=== PATIENT | male | born 1965 | race African-American/Black ===

== ENCOUNTER 2022-02-02 11:53 | Emergency (ER) | payer OTHER ==
[2022-02-02] MEDS ORDERED: LACTATED RINGERS SOLUTION 1000 ML INFUS.BAG IV ONE (12:53)
[2022-02-02 13:48] VITALS: BMI 22.1
[2022-02-02 13:48] LABS: BASO % 0.2 % (0-2.0); HEMATOCRIT 44.5 % (35.4-49); LYMPH % 9.5 % (8-40); MCH 28.7 pg (25.7-33.7); MCHC 33.8 g/dl (32.0-35.9); MEAN CELL VOLUME 84.9 fl (80-96); MEAN PLT VOLUME 7.9 fl (7.5-11.1); MONO % 4.8 % (3.8-10.2); NEUT % 85.5 % (42.8-82.8); PLATELET COUNT 339 10^3/uL (134-434); RBC 5.24 M/mm3 (4.00-5.60); RDW 14.7 % (11.9-15.9); WHITE BLOOD COUNT 10.2 K/mm3 (4.0-10.0)
[2022-02-02 14:05] LABS: CALCIUM 9.5 mg/dL (8.5-10.1)
[2022-02-02 14:06] LABS: ALBUMIN 3.6 g/dl (3.4-5.0); BLOOD UREA NITROGEN 10.5 mg/dL (7-18)
[2022-02-02 14:11] LABS: BILIRUBIN,TOTAL 0.4 mg/dL (0.2-1); TOT PROT 7.5 g/dl (6.4-8.2)
[2022-02-02 14:12] LABS: CREATININE 0.9 mg/dL (0.55-1.3)
[2022-02-02] MEDS ORDERED: amLODIPine BESYLATE 2.5 MG TABLET (FP) PO ONE (14:23)
[2022-02-02] MEDS ORDERED: ACETAMINOPHEN 1000 MG/100 ML BAG IVPB ONE (14:25)
[2022-02-02] MEDS ORDERED: ACETAMINOPHEN INJECTION 100 ML IVPB ONE (14:40)
[2022-02-02] MEDS ORDERED: amLODIPine BESYLATE 2.5 MG TABLET (FP) ONE (14:40)
[2022-02-02] MEDS ORDERED: ONDANSETRON 4 MG/2 ML VIAL IVPUSH ONE (14:42)
[2022-02-02] MEDS ORDERED: ONDANSETRON 4 MG/2 ML VIAL ONE (14:44)
[2022-02-02 17:57] VITALS: BP 172/88; PULSE 55; TEMP 98.9
== END 2022-02-02 18:33 ==
LOC: JER 11:53
PROC: 3E0333Z Introduction of Anti-inflammatory into Peripheral Vein, Percutaneous Approach (ICD-10-PCS; principal; 2022-02-02)
PROC: 3E033GC Introduction of Other Therapeutic Substance into Peripheral Vein, Percutaneous Approach (ICD-10-PCS; 2022-02-02)
DX: I10 Essential (primary) hypertension (principal)
CPT/HCPCS: 36415; 71045-TC-FY; 80053; 84484; 85025; 99285-25

== ENCOUNTER 2022-02-02 20:32 | Inpatient (IN) | payer OTHER ==
[~2022-02-02 20:32] MED LIST: ACETAMINOPHEN 325 MG TABLET (FP) PO PRN; BISMUTH SUBSALICYLATE 262 MG/15 ML BTL PO PRN; BUPRENORPHINE HCL 150 MCG, BUPRENORPHINE HCL 75 MCG BC ONE; BUPRENORPHINE HCL 150 MCG, BUPRENORPHINE HCL 75 MCG BC PRN; DICYCLOMINE HCL 10 MG CAPSULE PO PRN; IBUPROFEN 400 MG TABLET (FP) PO PRN; LOPERAMIDE HCL 2 MG CAPSULE PO PRN; MAG HYDROX/AL HYDROX/SIMETH 30 ML UNIT-DOSE CUP PO PRN; MAGNESIUM CITRATE 300 ML BOTTLE PO PRN; MAGNESIUM HYDROX 2400MG/30ML ORAL SUSPENSION 30 ML CUP PO PRN; METHOCARBAMOL 500 MG TABLET PO PRN; NICOTINE 10 MG CARTRIDGE (INHALER) IH PRN; cloNIDine HCL 0.1 MG TABLET PO ONE; diazePAM 5 MG TABLET PO PRN
[2022-02-02 21:08] VITALS: BMI 20.2
[2022-02-02] MEDS: NICOTINE 7 MG/24 HOURS TOPICAL PATCH TD SCH (21:45)
[2022-02-02] MEDS ORDERED: cloNIDine HCL 0.1 MG TABLET ONE (21:46)
[2022-02-02] MEDS ORDERED: BUPRENORPHINE HCL 75 MCG FILM BC ONE (21:47)
[2022-02-02] MEDS ORDERED: BUPRENORPHINE HCL 150 MCG FILM BC ONE (21:47)
[2022-02-02] MEDS: cloNIDine HCL 0.1 MG TABLET PO PRN (21:48)
[2022-02-03] MEDS ORDERED: BUPRENORPHINE HCL 150 MCG, BUPRENORPHINE HCL 75 MCG BC PRN
[2022-02-03] MEDS: ONDANSETRON *ODT* 4 MG TABLET SL PRN ×2 (00:10→08:27)
[2022-02-03] MEDS: MELATONIN 5 MG TABLETS PO SCH ×2 (00:14→22:48)
[2022-02-03] MEDS: hydrOXYzine PAMOATE 25 MG CAPSULE (FP) PO SCH ×7 (00:14→22:48)
[2022-02-03] MEDS: PRENATAL VITAMINS W/ FOLIC ACID TABLET (FP) PO SCH ×2 (00:14→10:49)
[2022-02-03] MEDS: THIAMINE HCL 100 MG TABLET (FP) PO SCH ×2 (00:16→22:48)
[2022-02-03] MEDS ORDERED: BUPRENORPHINE HCL 150 MCG FILM BC ONE ×2 (04:32→17:01)
[2022-02-03] MEDS ORDERED: BUPRENORPHINE HCL 75 MCG FILM BC ONE ×2 (04:33→17:02)
[2022-02-03] MEDS: BUPRENORPHINE HCL 150 MCG, BUPRENORPHINE HCL 75 MCG BC SCH ×2 (05:56→18:31)
[2022-02-03] MEDS: cloNIDine HCL 0.1 MG TABLET PO PRN ×3 (07:31→22:48)
[2022-02-03] MEDS: amLODIPine BESYLATE 5 MG TABLET (FP) PO SCH (10:49)
[2022-02-03] MEDS: NICOTINE 7 MG/24 HOURS TOPICAL PATCH TD SCH (10:49)
[2022-02-04] MEDS: hydrOXYzine PAMOATE 25 MG CAPSULE (FP) PO SCH ×5 (06:22→23:07)
[2022-02-04] MEDS: BUPRENORPHINE HCL 450 MCG FILM BC SCH ×2 (06:22→18:15)
[2022-02-04] MEDS: amLODIPine BESYLATE 5 MG TABLET (FP) PO SCH (10:35)
[2022-02-04] MEDS: cloNIDine HCL 0.1 MG TABLET PO PRN ×2 (10:35→23:07)
[2022-02-04] MEDS: PRENATAL VITAMINS W/ FOLIC ACID TABLET (FP) PO SCH (10:35)
[2022-02-04] MEDS: BENZOCAINE/MENTHOL (CHLORASEPTIC ) LOZENGE MM PRN ×2 (10:36→18:10)
[2022-02-04] MEDS: NICOTINE 7 MG/24 HOURS TOPICAL PATCH TD SCH (10:37)
[2022-02-04 16:08] LABS: SARS-CoV-2 NAA Not Detected (Not Detected)
[2022-02-04] MEDS: MELATONIN 5 MG TABLETS PO SCH (23:07)
[2022-02-04] MEDS: THIAMINE HCL 100 MG TABLET (FP) PO SCH (23:08)
[2022-02-05] MEDS: BUPRENORPHINE/NALOXONE 4 MG/1 MG FILM PACKET SL SCH ×2 (07:48→18:32)
[2022-02-05] MEDS: hydrOXYzine PAMOATE 25 MG CAPSULE (FP) PO SCH ×5 (07:49→22:03)
[2022-02-05] MEDS: NICOTINE 7 MG/24 HOURS TOPICAL PATCH TD SCH (10:19)
[2022-02-05] MEDS: amLODIPine BESYLATE 5 MG TABLET (FP) PO SCH (10:19)
[2022-02-05] MEDS: PRENATAL VITAMINS W/ FOLIC ACID TABLET (FP) PO SCH (10:19)
[2022-02-05] MEDS: cloNIDine HCL 0.1 MG TABLET PO PRN (10:21)
[2022-02-05] MEDS ORDERED: BUPRENORPHINE/NALOXONE 4 MG/1 MG FILM PACKET SL ONE (19:15)
[2022-02-05] MEDS: ONDANSETRON *ODT* 4 MG TABLET SL PRN (21:03)
[2022-02-05] MEDS: BENZOCAINE/MENTHOL (CHLORASEPTIC ) LOZENGE MM PRN (22:03)
[2022-02-05] MEDS: MELATONIN 5 MG TABLETS PO SCH (22:03)
[2022-02-05] MEDS: THIAMINE HCL 100 MG TABLET (FP) PO SCH (22:03)
[2022-02-06] MEDS ORDERED: BUPRENORPHINE/NALOXONE 8 MG/2 MG FILM PACKET SL ONE (06:00)
[2022-02-06] MEDS: hydrOXYzine PAMOATE 25 MG CAPSULE (FP) PO SCH ×2 (08:36→11:10)
[2022-02-06 09:40] VITALS: BP 134/82; PULSE 88; TEMP 98.8
[2022-02-06] MEDS: amLODIPine BESYLATE 5 MG TABLET (FP) PO SCH (11:10)
[2022-02-06] MEDS: PRENATAL VITAMINS W/ FOLIC ACID TABLET (FP) PO SCH (11:10)
[2022-02-06] MEDS: NICOTINE 7 MG/24 HOURS TOPICAL PATCH TD SCH (11:10)
== END 2022-02-06 10:03 | disposition home or self-care (01) | DRG 897 ==
LOC: YASAS 20:32 → Y3N 22:58
PROVIDERS: ADMIT Allergy & Immunology; ATTEND Allergy & Immunology
PROC: HZ2ZZZZ Detoxification Services for Substance Abuse Treatment (ICD-10-PCS; principal; 2022-02-02)
DX: F11.23 Opioid dependence with withdrawal (principal); F14.20 Cocaine dependence, uncomplicated; I16.9 Hypertensive crisis, unspecified; F17.210 Nicotine dependence, cigarettes, uncomplicated; F41.9 Anxiety disorder, unspecified; Z96.653 Presence of artificial knee joint, bilateral; Z86.74 Personal history of sudden cardiac arrest; I25.2 Old myocardial infarction; Z86.19 Personal history of other infectious and parasitic diseases; Z88.6 Allergy status to analgesic agent
CPT/HCPCS: 36415; 86593; 86780; 93005; 93010; C9803-CS; J0735; Q0162; U0003; U0005